=== PATIENT | male | born 1990 | race Caucasian/White ===

== ENCOUNTER 2018-05-31 10:19 | Emergency (ER) | payer OTHER ==
[2018-05-31 10:43] VITALS: RESP 18
--- NOTE | 2018-05-31 11:03 | ED ---
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 Patient reports that when he moves the pain radiates Around the abdomen. Patient reports that he is laying still and not moving his significant pain. Whenever he does any certain movements the pain flares up. Patient reports that he has not taken anything for the pain. Reports that 2 days ago prior to the onset of pain he was doing a lot of physical activity at work. 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 Patient states that he has had no numbness or tingling on the arms or legs. Denies saddle anesthesias. - Related Data Previous Rx's Medication Instructions Recorded Cyclobenzaprine [Flexeril] 10 mg PO TID #20 tab 05/31/18 Ibuprofen 600 mg PO TID #20 tablet 05/31/18 Allergies Allergy/AdvReac Type Severity Reaction Status Date / Time No Known Allergies Allergy Verified 05/31/18 10:52 Review of Systems ROS Statement: Those systems with pertinent positive or pertinent negative responses have been documented in the HPI. ROS Other: All systems not noted in ROS Statement are negative. Past Medical History Past Medical History: No Reported History History of Any Multi-Drug Resistant Organisms: None Reported Past Surgical History: No Surgical Hx Reported Past Psychological History: No Psychological Hx Reported Smoking Status: Never smoker Past Alcohol Use History: None Reported Past Drug Use History: None Reported General Exam - General Exam Comments Initial Comments: This is a 27-year-old male. Patient appears in no significant distress. Limitations: no limitations General appearance: alert Head exam: Present: atraumatic, normocephalic, normal inspection Eye exam: Present: normal appearance, PERRL, EOMI. Absent: scleral icterus, conjunctival injection, periorbital swelling ENT exam: Present: normal exam, mucous membranes moist Neck exam: Present: normal inspection. Absent: tenderness, meningismus, lymphadenopathy Respiratory exam: Present: normal lung sounds bilaterally. Absent: respiratory distress, wheezes, rales, rhonchi, stridor Cardiovascular Exam: Present: regular rate, normal rhythm, normal heart sounds. Absent: systolic murmur, diastolic murmur, rubs, gallop, clicks Extremities exam: Present: normal inspection, full ROM, normal capillary refill. Absent: tenderness, pedal edema, joint swelling, calf tenderness Back exam: Present: normal inspection, tenderness (Patient has tenderness over the thoracic and cervical spine. Tenderness over the paraspinal muscles.) Neurological exam: Present: alert, oriented X3, CN II-XII intact Psychiatric exam: Present: normal affect, normal mood Course Vital Signs 05/31/18 10:37 Temperature 98.8 F Pulse Rate 89 Respiratory 18 Rate Blood Pressure 149/97 O2 Sat by Pulse 99 Oximetry Medical Decision Making - Medical Decision Making 27-year-old male presents raise from today with acute thoracic and cervical spinal pain. Patient reports that he was having an occupational injury due to blunt physical activity at work. Patient reports he was bringing of present bites. At this time he has some paraspinal tenderness. Patient thoracic and cervical spine are nontender. X-ray showed no acute fracture. This evidence of decreased curvature consistent with muscle spasm. Patient refused muscle relaxer and pain medicine emergency department. We will discharge him with starter packs and prescription for Flexeril and ibuprofen. Discussed following up with PCP. - Radiology Data Radiology results: report reviewed Cervical spine shows reversal normal cervical lordosis could be positional or due to muscle spasm. Otherwise no acute fracture or malalignment seen. There are*spine shows no vertebral compression collapse or malalignment. Disposition Clinical Impression: Spasm of thoracic back muscle Disposition: HOME SELF-CARE Condition: Good Instructions: Back Pain (ED) Additional Instructions: Rest, Use Ice and heating pad over areas. Patient should take medication as perscribed. Return to ED and follow up with ortho if any alarming signs or symptoms occur. Prescriptions: Cyclobenzaprine [Flexeril] 10 mg PO TID #20 tab Ibuprofen 600 mg PO TID #20 tablet Is patient prescribed a controlled substance at d/c from ED?: No Referrals: None,Stated [Primary Care Provider] - 1-2 days Blake Smith MD [STAFF PHYSICIAN] - 1-2 days Time of Disposition: 12:16
--- NOTE | 2018-05-31 11:26 | XR ---
EXAMINATION TYPE: XR cervical spine 3 views, XR thoracic spine 3 views DATE OF EXAM: 05/31/2018 COMPARISON: NONE HISTORY: 27-year-old male upper back pain FINDINGS: Cervical spine: No predental space widening or prevertebral soft tissue swelling. Reversal of the normal cervical kobe dosis. Alignment is maintained. No significant degenerative change seen. Normal odontoid view. Thoracic spine: 12 rib-bearing thoracic vertebral bodies. All pedicles are visualized. Alignment is maintained verteb ral body heights are preserved. Some limitation assessment of the upper most thoracic vertebral vincent s due to overlying patient's shoulders. IMPRESSION: 1. Cervical spine: Reversal of the normal cervical lordosis could be positional or due to muscle spas m. Otherwise, no acute fracture or malalignment seen. 2. Thoracic spine: No vertebral compression collapse or malalignment.
[2018-05-31] MEDS ORDERED: IBUPROFEN 600 MG STARTER PACK 4 TAB BTL PO STA (12:16)
[2018-05-31] MEDS ORDERED: CYCLOBENZAPRINE 10MG STARTER 3 TAB BTL PO STA (12:17)
[2018-05-31 12:40] VITALS: BP 136/79; PULSE 79; TEMP 98.7
== END 2018-05-31 13:04 | disposition home or self-care (01) ==
LOC: EC 10:19
DX: M62.830 Muscle spasm of back (principal); X50.9XXA Other and unspecified overexertion or strenuous movements or postures, initial encounter; Y92.69 Other specified industrial and construction area as the place of occurrence of the external cause; Y99.0 Civilian activity done for income or pay
CPT/HCPCS: 72040; 72070; 99284

== ENCOUNTER 2018-08-04 02:32 | Emergency (ER) | payer MEDICAID ==
[2018-08-04] MEDS: SODIUM CHLORIDE 0.9% 1,000 ML IV STA (04:13)
[2018-08-04] MEDS: ONDANSETRON 4 MG/2 ML VIAL IVP STA (04:14)
[2018-08-04 04:30] LABS: ALT 33 U/L (21-72); AST 25 U/L (17-59); Albumin 4.2 g/dL (3.5-5.0); Alkaline Phosphatase 72 U/L (38-126); Amylase 48 U/L (30-110); Anion Gap 10 mmol/L; Blood Urea Nitrogen 12 mg/dL (9-20); Calcium 9.7 mg/dL (8.4-10.2); Carbon Dioxide 24 mmol/L (22-30); Chloride 106 mmol/L (98-107); Glucose 154 mg/dL (74-99); Lipase 98 U/L (23-300); Sodium 140 mmol/L (137-145); Total Bilirubin 0.4 mg/dL (0.2-1.3); Total Protein 7.1 g/dL (6.3-8.2)
[2018-08-04] MEDS: MECLIZINE 12.5 MG TAB PO STA ×2 (04:31→06:36)
[2018-08-04 04:45] LABS: Basophils % (A) 0 %; Eosinophils # (A) 0.1 k/uL (0-0.7); Eosinophils % (A) 1 %; HCT 44.2 % (39.0-53.0); HGB 15.4 gm/dL (13.0-17.5); Lymphocytes # (A) 1.5 k/uL (1.0-4.8); Lymphocytes % (A) 11 %; MCH 30.1 pg (25.0-35.0); MCHC 34.9 g/dL (31.0-37.0); MCV 86.2 fL (80.0-100.0); Mean Platelet Volume 6.5; Monocytes # (A) 0.6 k/uL (0-1.0); Monocytes % (A) 5 %; Neutrophils # (A) 11.2 k/uL (1.3-7.7); Neutrophils % (A) 83 %; Platelet Count 215 k/uL (150-450); RBC 5.13 m/uL (4.30-5.90); RDW 12.5 % (11.5-15.5); WBC 13.5 k/uL (3.8-10.6)
--- NOTE | 2018-08-04 05:07 | CT ---
EXAMINATION TYPE: CT brain wo con DATE OF EXAM: 08/04/2018 COMPARISON: None HISTORY: dizziness CT DLP: 1058.40 mGycm. Automated Exposure Control for Dose Reduction was Utilized. TECHNIQUE: CT scan of the head is performed without contrast. FINDINGS: Ventricles have normal size. There is no mass effect nor midline shift. There is no sign of intracranial hemorrhage. Calvarium is intact. There is mild mucosal thickening in the maxillary sinu ses. IMPRESSION: Negative CT scan of the brain.
--- NOTE | 2018-08-04 06:29 | ED ---
General Adult HPI - General Chief complaint: Nausea/Vomiting/Diarrhea Stated complaint: Flu Like Symptoms Time Seen by Provider: 08/04/18 02:46 Source: patient, EMS Mode of arrival: EMS Limitations: no limitations - History of Present Illness Initial comments: This patient is 27-year-old man who presents to be evaluated for some vertiginous symptoms as well as ear pressure. Started acutely tonight. He then also began to have multiple episodes of vomiting. He says the symptoms are much worse if he attempts to move or turns his head. He denies any head injury. He noted that prior to the onset he felt like he may have been developing pressure on the right ear. -: hour(s) Quality: other (Pressure) Consistency: constant Improves with: immobilization Worsens with: movement Associated Symptoms: denies other symptoms - Related Data Previous Rx's Medication Instructions Recorded Cyclobenzaprine [Flexeril] 10 mg PO TID #20 tab 05/31/18 Ibuprofen 600 mg PO TID #20 tablet 05/31/18 Meclizine [Antivert] 25 mg PO TID PRN #20 tab 08/04/18 Allergies Allergy/AdvReac Type Severity Reaction Status Date / Time No Known Allergies Allergy Verified 05/31/18 10:52 Review of Systems ROS Statement: Those systems with pertinent positive or pertinent negative responses have been documented in the HPI. ROS Other: All systems not noted in ROS Statement are negative. Constitutional: Denies: fever Eyes: Denies: eye pain, vision change ENT: Reports: ear pain, congestion. Denies: hearing loss Respiratory: Denies: cough, dyspnea Cardiovascular: Denies: chest pain, palpitations Gastrointestinal: Reports: nausea, vomiting. Denies: abdominal pain Genitourinary: Denies: dysuria, hematuria Musculoskeletal: Denies: back pain Skin: Denies: rash Neurological: Reports: vertigo. Denies: headache, weakness, numbness, paresthesias, confusion Past Medical History Past Medical History: No Reported History History of Any Multi-Drug Resistant Organisms: None Reported Past Surgical History: No Surgical Hx Reported Past Psychological History: No Psychological Hx Reported Smoking Status: Never smoker Past Alcohol Use History: None Reported Past Drug Use History: None Reported General Exam Limitations: no limitations General appearance: alert, in no apparent distress Head exam: Present: atraumatic, normocephalic Eye exam: Present: normal appearance, PERRL, EOMI, nystagmus. Absent: scleral icterus, conjunctival injection ENT exam: Present: normal oropharynx, TM's normal bilaterally, normal external ear exam Neck exam: Present: normal inspection, full ROM. Absent: tenderness, meningismus, lymphadenopathy Respiratory exam: Present: normal lung sounds bilaterally. Absent: respiratory distress, wheezes, rales, rhonchi, stridor Cardiovascular Exam: Present: regular rate, normal rhythm, normal heart sounds. Absent: systolic murmur, diastolic murmur, rubs, gallop GI/Abdominal exam: Present: soft. Absent: distended, tenderness, guarding, rebound, rigid Extremities exam: Present: normal inspection Neurological exam: Present: alert, oriented X3, CN II-XII intact. Absent: motor sensory deficit Skin exam: Present: warm, dry, intact, normal color. Absent: rash Course Vital Signs 08/04/18 08/04/18 08/04/18 02:33 05:27 06:45 Temperature 98.0 F 98.1 F Pulse Rate 87 71 57 L Respiratory 18 16 19 Rate Blood Pressure 145/100 125/74 132/88 O2 Sat by Pulse 96 97 100 Oximetry Medical Decision Making - Lab Data Result diagrams: 08/04/18 04:11 08/04/18 04:11 Lab Results 08/04/18 08/04/18 Range/Units 04:11 04:11 WBC 13.5 H (3.8-10.6) k/uL RBC 5.13 (4.30-5.90) m/uL Hgb 15.4 (13.0-17.5) gm/dL Hct 44.2 (39.0-53.0) % MCV 86.2 (80.0-100.0) fL MCH 30.1 (25.0-35.0) pg MCHC 34.9 (31.0-37.0) g/dL RDW 12.5 (11.5-15.5) % Plt Count 215 (150-450) k/uL Neutrophils % 83 % Lymphocytes % 11 % Monocytes % 5 % Eosinophils % 1 % Basophils % 0 % Neutrophils # 11.2 H (1.3-7.7) k/uL Lymphocytes # 1.5 (1.0-4.8) k/uL Monocytes # 0.6 (0-1.0) k/uL Eosinophils # 0.1 (0-0.7) k/uL Basophils # 0.0 (0-0.2) k/uL Sodium 140 (137-145) mmol/L Potassium 4.0 (3.5-5.1) mmol/L Chloride 106 (98-107) mmol/L Carbon Dioxide 24 (22-30) mmol/L Anion Gap 10 mmol/L BUN 12 (9-20) mg/dL Creatinine 0.88 (0.66-1.25) mg/dL Est GFR (CKD-EPI)AfAm >90 (>60 ml/min/1.73 sqM) Est GFR (CKD-EPI)NonAf >90 (>60 ml/min/1.73 sqM) Glucose 154 H (74-99) mg/dL Calcium 9.7 (8.4-10.2) mg/dL Total Bilirubin 0.4 (0.2-1.3) mg/dL AST 25 (17-59) U/L ALT 33 (21-72) U/L Alkaline Phosphatase 72 (38-126) U/L Total Protein 7.1 (6.3-8.2) g/dL Albumin 4.2 (3.5-5.0) g/dL Amylase 48 (30-110) U/L Lipase 98 (23-300) U/L Disposition Clinical Impression: Vertigo Disposition: HOME SELF-CARE Condition: Good Instructions (If sedation given, give patient instructions): Vertigo (ED) Prescriptions: Meclizine [Antivert] 25 mg PO TID PRN #20 tab PRN Reason: Vertigo Is patient prescribed a controlled substance at d/c from ED?: No Referrals: None,Stated [Primary Care Provider] - 1-2 days
[2018-08-04 06:46] VITALS: BP 132/88; PULSE 57; RESP 19; TEMP 98.1
== END 2018-08-04 06:45 | disposition home or self-care (01) ==
LOC: EC 02:32
DX: R42 Dizziness and giddiness (principal); R11.10 Vomiting, unspecified
CPT/HCPCS: 36415; 80053; 82150; 83690; 85025; 70450; 99285; 96374; 96361; J2405

== ENCOUNTER 2021-08-23 16:53 | Emergency (ER) | payer MEDICAID, OTHER ==
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
[2021-08-23 19:23] VITALS: BP 142/86; PULSE 80; RESP 18; TEMP 98
== END 2021-08-23 19:15 | disposition home or self-care (01) ==
LOC: EC 16:53
DX: S06.0X0A Concussion without loss of consciousness, initial encounter (principal); Y04.8XXA Assault by other bodily force, initial encounter
CPT/HCPCS: 70450; 72125; 99284

== ENCOUNTER → 2021-10-18 | Outpatient (CLI) | payer OTHER ==
--- NOTE | 2021-10-18 08:35 | MR ---
EXAMINATION TYPE: MR brain wo/w con DATE OF EXAM: 10/18/2021 COMPARISON: CT brain August 23, 2021 HISTORY: Closed head injury TECHNIQUE: Multiplanar, multisequence images of the brain and brainstem is performed without and with IV contras t, utilizing 12 mL intravenous Gadavist . FINDINGS: Diffusion weighted images demonstrate no evidence of a recent infarct or other diffusion ab normality. There is no extra-axial fluid collection or significant white matter signal abnormality. The ventricular system and cisternal spaces are normal in size and appearance. The brain volume is age appropriate. T2 Star weighted images show no suspicious intraparenchymal blood products. Midline structures demonstrate normal morphology. The craniocervical junction appears within normal limits. Post contrast images demonstrate no abnormal enhancement. The dural venous sinuses appear pa tent. The visualized sinuses are clear and the globes are intact. IMPRESSION: Unremarkable study.
== END | disposition home or self-care (01) ==
LOC: RADMRIMAIN 07:32
PROVIDERS: ATTEND Psychiatry & Neurology Neurology
DX: S09.90XA Unspecified injury of head, initial encounter (principal); X58.XXXA Exposure to other specified factors, initial encounter
CPT/HCPCS: 70553; A9585